=== PATIENT | male | born 1945 | race Caucasian/White ===

== ENCOUNTER 2020-12-30 14:19 | Emergency (ER) | payer OTHER, MEDICARE ==
[2020-12-30 14:39] VITALS: TEMP 98.2; BMI 38.2
[2020-12-30] MEDS ORDERED: BAMLANIVIMAB 700 MG in SODIUM CHLORIDE 250 ML IVPB ONE (15:08)
[2020-12-30 15:59] LABS: HEMATOCRIT 36.6 % (35.4-49); HEMOGLOBIN 12.1 GM/dL (11.7-16.9); MCH 27.4 pg (25.7-33.7); MCHC 33.2 g/dl (32.0-35.9); MEAN CELL VOLUME 82.7 fl (80-96); MEAN PLT VOLUME 8.8 fl (7.5-11.1); PLATELET COUNT 150 K/MM3 (134-434); RBC 4.43 M/mm3 (4.00-5.60); RDW 14.9 % (11.9-15.9); WHITE BLOOD COUNT 6.2 K/mm3 (4.0-10.0)
[2020-12-30 16:15] LABS: POTASSIUM 3.8 mmol/L (3.5-5.1)
[2020-12-30 16:17] LABS: CALCIUM 8.2 mg/dL (8.5-10.1)
[2020-12-30 16:18] LABS: BLOOD UREA NITROGEN 21.8 mg/dL (7-18)
[2020-12-30 19:48] VITALS: BP 125/70; PULSE 89
== END 2020-12-30 19:48 | disposition home or self-care (01) ==
LOC: JER 14:19 → JCOVINFU 14:19
DX: U07.1 COVID-19 (principal)
CPT/HCPCS: 36415; 80048; 85027; 99284-25; M0239; Q0239